=== PATIENT | male | born 2000 | race Caucasian/White ===

== ENCOUNTER 2021-05-14 09:58 | Emergency (ER) | payer OTHER ==
[~2021-05-14] VITALS: Ht 188 cm; Wt 154.4 kg
[2021-05-14] MEDS ORDERED: LIDOCAINE 2% MDV 20ML VIAL SC ONE (11:50)
[2021-05-14] MEDS ORDERED: AUGM875T28 PO (12:32)
[2021-05-14 13:20] VITALS: BP 130/80
== END 2021-05-14 13:09 | disposition home or self-care (01) ==
LOC: M ED 09:58
DX: S31.821A Laceration without foreign body of left buttock, initial encounter (principal); S80.11XA Contusion of right lower leg, initial encounter; W17.89XA Other fall from one level to another, initial encounter; Y92.9 Unspecified place or not applicable; Y93.9 Activity, unspecified; Y99.0 Civilian activity done for income or pay